=== PATIENT | female | born 1945 | race Caucasian/White ===

== ENCOUNTER 2016-09-26 12:07 | Inpatient (IN) | payer MEDICARE, OTHER ==
[2016-09-26] MEDS ORDERED: LACTATED RINGERS 1,000 ML IV SCH (12:13)
[2016-09-26] MEDS ORDERED: ONDANSETRON HCL 4 MG/2 ML VIAL IV PRN (12:13)
[2016-09-26] MEDS ORDERED: SODIUM CHLORIDE NASAL SPRAY 44 SPRAY/44 ML BTL NASAL PRN ×2 (12:13→19:20)
[2016-09-26] MEDS ORDERED: HOME MEDICATION LIST NEEDED 1 EA EACH MC ONE (12:13)
[2016-09-26] MEDS ORDERED: ONDANSETRON ODT 4 MG TAB.RAPDIS PO PRN ×2 (12:13→19:20)
[2016-09-26] MEDS ORDERED: LABETALOL HCL 100 MG/20 ML VIAL IV PRN (12:13)
[2016-09-26] MEDS ORDERED: MORPHINE SULFATE 2 MG/ML SYR IV PRN (12:13)
--- NOTE | 2016-09-26 12:29 | PROGRESS NOTE: Orthopedics ---
Orthopedic PN Subjective - Subjective Principal Diagnosis: Post op IM nailing L intertrochanteric fx Post-op Day: 3 Interval history: Pt feel a little better now. Was having trouble with spasm. Ortho PN Objective Exam - Latest Vital Signs and I&O Latest Vital Signs/I&O: Intake & Output 09/25/16 09/26/16 09/26/16 17:59 05:59 17:59 Weight 59 kg - Post-Operative Exam Incision: Present: clean and dry Drainage Amount: none Active Motor: intact Sensation: intact Jose J's sign: Negative Assessment and Plan-Ortho - Date of Encounter Date of Encounter: 09/26/16 (1) Fracture, intertrochanteric, left femur Status: Acute Assessment and plan: Doing fairly well but slow to mobilize due to Parkinson's and spasm. Plan: Continue PT/mobilization Current Visit: No Quality Questions - VTE Prophylaxis Assessment VTE Present on Admission?: No Patient at risk for venous thromboembolism?: Yes VTE Risk Level: Moderate Risk Pharmaceutical VTE prophylaxis contraindication reason: N/A- VTE prophylaxsis ordered Mechanical VTE prophylaxis contraindication reason: N/A- VTE prophylaxsis ordered
[2016-09-26] MEDS: ACETAMINOPHEN 325 MG TABLET PO PRN ×2 (14:15→21:11)
[2016-09-26] MEDS: BACLOFEN 10MG TABLET PO PRN ×2 (14:15→21:11)
[2016-09-26] MEDS: CARBIDOPA/LEVODOPA 25/100 MG 1 TAB TABLET PO SCH (17:02)
[2016-09-26 19:03] LABS: URINE AMORPHOUS SEDIMENT UP TO 25%/lpf (Up to 25%); URINE APPEARANCE CLEAR; URINE BACTERIA NONE SEEN (<10/hpf); URINE BILIRUBIN NEGATIVE (NEGATIVE); URINE BLOOD TRACE (NEGATIVE); URINE COLOR YELLOW; URINE GLUCOSE NORMAL (NEGATIVE); URINE KETONE NEGATIVE (NEGATIVE); URINE LEUKOCYTE ESTERASE NEGATIVE (NEGATIVE); URINE MUCUS NONE SEEN (Up to 25%); URINE NITRITE NEGATIVE (NEGATIVE); URINE PH 6.5 (5-7); URINE PROTEIN NEGATIVE (NEG - TRACE); URINE RBC NONE SEEN (0-5/hpf); URINE SQUAMOUS EPITHELIAL CELL 0-5/hpf (<= 15/hpf); URINE TRANSITIONAL EPI CELL 0-5/hpf (<=5/hpf); URINE UROBILINOGEN 0.2mg/dL (Normal) (NEG-1mg/dL); URINE WBC 0-4/hpf (0-4/hpf)
[2016-09-26] MEDS ORDERED: BACLOFEN 10MG TABLET PO PRN (19:20)
[2016-09-26] MEDS ORDERED: ACETAMINOPHEN 325 MG TABLET PO PRN (19:20)
[2016-09-26] MEDS: DOCUSATE SODIUM 100 MG CAPSULE PO SCH (20:54)
[2016-09-26] MEDS: FAMOTIDINE 20 MG TABLET PO SCH (20:55)
[2016-09-26] MEDS: ALBUTEROL HFA 1 INH INHALER INHALATION SCH (20:56)
[2016-09-26] MEDS ORDERED: ALBUTEROL HFA 1 INH INHALER INHALATION SCH (21:00)
[2016-09-26] MEDS ORDERED: FAMOTIDINE 20 MG TABLET PO SCH (21:00)
[2016-09-26] MEDS ORDERED: AMITRIPTYLINE HCL 25 MG TABLET PO SCH ×2 (21:00)
[2016-09-26] MEDS ORDERED: DOCUSATE SODIUM 100 MG CAPSULE PO SCH (21:00)
[2016-09-26] MEDS ORDERED: BISACODYL 10 MG SUPP.RECT PR SCH (21:00)
[2016-09-26] MEDS ORDERED: MAGNESIUM HYDROXIDE 30 ML UDC PO PRN (21:39)
[2016-09-27] MEDS ORDERED: BISACODYL 10 MG SUPP.RECT RECTAL PRN (03:06)
[2016-09-27] MEDS ORDERED: CARBIDOPA/LEVODOPA 25/100 MG 1 TAB TABLET PO SCH (07:00)
[2016-09-27] MEDS: CARBIDOPA/LEVODOPA 25/100 MG 1 TAB TABLET PO SCH ×3 (07:01→16:14)
[2016-09-27] MEDS: BACLOFEN 10MG TABLET PO PRN ×2 (07:02→12:38)
[2016-09-27] MEDS: ACETAMINOPHEN 325 MG TABLET PO PRN ×2 (07:09→14:50)
--- NOTE | 2016-09-27 08:53 | PROGRESS NOTE: Orthopedics ---
Orthopedic PN Subjective - Subjective Principal Diagnosis: Post op IM nailing L intertroch hip fracture Post-op Day: 4 Interval history: Pt feels fairly well at this time but still having some muscle spasm. Ortho PN Objective Exam - Latest Vital Signs and I&O Latest Vital Signs/I&O: Vital Signs Temp 36.7 C 09/27/16 07:00 Pulse 87 09/27/16 07:00 Resp 20 09/26/16 18:36 BP 146/69 09/27/16 07:00 Pulse Ox 95 09/27/16 08:34 Intake & Output 09/26/16 09/27/16 09/27/16 17:59 05:59 17:59 Intake Total 1790 950 Output Total 1825 1875 Balance -35 -925 Weight 58.967 kg Intake: Oral 1790 950 Output: Urine 1824 1875 Other: Urine Appearance Clear Clear Urine Color Pale Yellow Yellow Stool Size Copious Stool Characteristics Soft [place] Voiding Method Toilet Bedside Commode - Post-Operative Exam Incision: Present: clean and dry Dressing Status: dry & intact Drainage Amount: none Sensation: intact Jose J's sign: Negative - Lab Labs: Laboratory Last Values Urine Color Yellow 09/26/16 12:13 Urine Appearance Clear 09/26/16 12:13 Urine pH 6.5 (5-7) 09/26/16 12:13 Ur Specific [place] 1.010 (0.001-1.035) 09/26/16 12:13 Urine Protein Negative (NEG - TRACE) 09/26/16 12:13 Urine Ketones Negative (NEGATIVE) 09/26/16 12:13 Urine Blood Trace (NEGATIVE) A 09/26/16 12:13 Urine Nitrate Negative (NEGATIVE) 09/26/16 12:13 Urine Bilirubin Negative (NEGATIVE) 09/26/16 12:13 Urine Urobilinogen 0.2mg/dl (normal) (NEG-1mg/dL) 09/26/16 12:13 Ur Leukocyte Esterase Negative (NEGATIVE) 09/26/16 12:13 Urine RBC None seen (0-5/hpf) 09/26/16 12:13 Urine WBC 0-4/hpf (0-4/hpf) 09/26/16 12:13 Ur Squamous Epith Cells 0-5/hpf (<= 15/hpf) 09/26/16 12:13 Ur Transition Epith Cell 0-5/hpf (<=5/hpf) 09/26/16 12:13 Amorphous Sediment Up to 25%/lpf (Up to 25%) 09/26/16 12:13 Urine Bacteria None seen (<10/hpf) 09/26/16 12:13 Urine Mucus None seen (Up to 25%) 09/26/16 12:13 Urine Glucose Normal (NEGATIVE) 09/26/16 12:13 Assessment and Plan-Ortho - Date of Encounter Date of Encounter: 09/27/16 (1) Fracture, intertrochanteric, left femur Status: Acute Assessment and plan: Doing fairly well but slow to mobilize due to Parkinson's and spasm. Plan: Continue PT/mobilization Current Visit: No
[2016-09-27] MEDS ORDERED: FOLIC ACID 1 MG TABLET PO SCH (09:00)
[2016-09-27] MEDS ORDERED: MULTIVITAMINS THERAPEUTIC 1 TABLET PO SCH (09:00)
[2016-09-27] MEDS ORDERED: CHOLECALCIFEROL 1,000 UNIT CAPSULE PO SCH (09:00)
[2016-09-27] MEDS ORDERED: CO Q10 100 MG PO SCH (09:00)
[2016-09-27] MEDS ORDERED: HYDROCHLOROTHIAZIDE 25 MG TABLET PO SCH (09:00)
[2016-09-27] MEDS ORDERED: FERROUS SULFATE 325 MG TABLET PO SCH (09:00)
[2016-09-27] MEDS ORDERED: ENOXAPARIN SODIUM 40 MG/0.4 ML SYR SUBCUT SCH (09:00)
--- NOTE | 2016-09-27 09:28 | PROGRESS NOTE: IM APSO ---
Assessment and Plan - Date of Encounter Date of Encounter: 09/27/16 (1) Fracture, intertrochanteric, left femur Status: Acute Assessment and plan: s/p orif, mobility improving, fatigued today likely meds and activity yesterday Current Visit: No (2) Hypertension Status: Chronic Assessment and plan: labile and related to parkinsonism Current Visit: No (3) Parkinsonian syndrome Status: Chronic Current Visit: No (4) Spinal stenosis Status: Chronic Assessment and plan: f/u ls spine Current Visit: No (5) Anemia Status: Acute Assessment and plan: surgical related and stable Current Visit: No - Time Spent With Patient Total time spent with greater than 50% in coordination of care (as documented) at patient's floor/unit and/or counseling patient: 16-24 minutes Estimated anticipated discharge: possible Sat likely Saturday IM: PN Subjective General: good appetite, no confusion, no fever Cardiovascular: other (dizzy with standing, some concern as elevated BP then stands and dips (related to parkinsonism and she knows this) has prn meds for elevated and avoiding dehydration), no chest pain, no chest pressure Respiratory: no cough, no sputum Gastrointestinal: constipation (now better), no abdominal pain, no vomiting, no diarrhea Musculoskeletal: pain (low back after fall (prior fixation) not over vertebrae and largely paraspinal) Neurological: no numbness IM: PN Objective Exam - I&O/Vital Signs I&O: Intake & Output 09/26/16 09/27/16 09/27/16 21:59 05:59 13:59 Intake Total 1790 950 Output Total 1825 1875 Balance -35 -925 Intake: Oral 1790 950 Output: Urine 1825 1875 Other: Urine Appearance Clear Clear Urine Color Pale Yellow Yellow Stool Size Copious Stool Characteristics [place] Voiding Method Toilet Bedside Commode Vital Signs: Last Vital Signs Temp 36.7 C 09/27/16 07:00 Pulse 87 09/27/16 07:00 Resp 20 09/26/16 18:36 BP 146/69 09/27/16 07:00 Pulse Ox 95 09/27/16 08:34 Oxygen Flow Rate 0 Oxygen Delivery Method Room Air - Constitutional General appearance: Present: average body habitus - Head Head exam: Present: atraumatic - Eye Eye exam: Present: EOMI - ENT ENT exam: Present: mucous membranes moist - Respiratory Respiratory exam: Present: CTAB - Cardiovascular Cardiovascular exam: Present: RRR - GI/Abdominal GI/Abdominal exam: Present: normal bowel sounds, soft, tenderness - Allied Health Notes Allied health notes reviewed: nursing - Lab Labs: Laboratory Last Values Urine Color Yellow 09/26/16 12:13 Urine Appearance Clear 09/26/16 12:13 Urine pH 6.5 (5-7) 09/26/16 12:13 Ur Specific [place] 1.010 (0.001-1.035) 09/26/16 12:13 Urine Protein Negative (NEG - TRACE) 09/26/16 12:13 Urine Ketones Negative (NEGATIVE) 09/26/16 12:13 Urine Blood Trace (NEGATIVE) A 09/26/16 12:13 Urine Nitrate Negative (NEGATIVE) 09/26/16 12:13 Urine Bilirubin Negative (NEGATIVE) 09/26/16 12:13 Urine Urobilinogen 0.2mg/dl (normal) (NEG-1mg/dL) 09/26/16 12:13 Ur Leukocyte Esterase Negative (NEGATIVE) 09/26/16 12:13 Urine RBC None seen (0-5/hpf) 09/26/16 12:13 Urine WBC 0-4/hpf (0-4/hpf) 09/26/16 12:13 Ur Squamous Epith Cells 0-5/hpf (<= 15/hpf) 09/26/16 12:13 Ur Transition Epith Cell 0-5/hpf (<=5/hpf) 09/26/16 12:13 Amorphous Sediment Up to 25%/lpf (Up to 25%) 09/26/16 12:13 Urine Bacteria None seen (<10/hpf) 09/26/16 12:13 Urine Mucus None seen (Up to 25%) 09/26/16 12:13 Urine Glucose Normal (NEGATIVE) 09/26/16 12:13 (1) Fracture, intertrochanteric, left femur Qualifiers: Fracture healing: with routine healing (2) Hypertension Qualifiers: Hypertension type: essential hypertension Qualified Code(s): I10 - Essential (primary) hypertension (3) Parkinsonian syndrome Qualifiers: Parkinsonism type: unspecified Qualified Code(s): G20 - Parkinson's disease
[2016-09-27] MEDS: DOCUSATE SODIUM 100 MG CAPSULE PO SCH ×2 (09:45→23:56)
[2016-09-27] MEDS: FERROUS SULFATE 325 MG TABLET PO SCH (09:45)
[2016-09-27] MEDS: ENOXAPARIN SODIUM 40 MG/0.4 ML SYR SUBCUT SCH (09:47)
[2016-09-27] MEDS: HYDROCHLOROTHIAZIDE 25 MG TABLET PO SCH (09:47)
[2016-09-27] MEDS: MULTIVITAMINS THERAPEUTIC 1 TABLET PO SCH ×2 (09:52→11:46)
[2016-09-27] MEDS: FOLIC ACID 1 MG TABLET PO SCH ×2 (09:53→11:47)
[2016-09-27] MEDS: CO Q10 100 MG PO SCH ×2 (09:53→11:47)
[2016-09-27] MEDS: CHOLECALCIFEROL 1,000 UNIT CAPSULE PO SCH ×2 (09:54→11:46)
[2016-09-27] MEDS: LIDOCAINE HCL 5% OINT 35 APP/35.44 GM TUBE TOPICAL PRN (16:15)
[2016-09-27] MEDS: ACETAMINOPHEN 500 MG TABLET PO PRN (18:00)
[2016-09-27] MEDS: AMITRIPTYLINE HCL 25 MG TABLET PO SCH (23:56)
[2016-09-27] MEDS: FAMOTIDINE 20 MG TABLET PO SCH (23:56)
[2016-09-27] MEDS: ALBUTEROL HFA 1 INH INHALER INHALATION SCH (23:56)
[2016-09-28] MEDS: FAMOTIDINE 20 MG TABLET PO SCH ×2 (01:56→21:33)
[2016-09-28] MEDS: AMITRIPTYLINE HCL 25 MG TABLET PO SCH ×2 (01:56→21:33)
[2016-09-28] MEDS: DOCUSATE SODIUM 100 MG CAPSULE PO SCH ×3 (01:57→21:32)
[2016-09-28] MEDS: ALBUTEROL HFA 1 INH INHALER INHALATION SCH ×2 (01:57→21:33)
[2016-09-28] MEDS: CARBIDOPA/LEVODOPA 25/100 MG 1 TAB TABLET PO SCH ×3 (06:37→17:27)
[2016-09-28] MEDS: ACETAMINOPHEN 500 MG TABLET PO PRN ×3 (06:45→23:45)
[2016-09-28] MEDS: LIDOCAINE HCL 5% OINT 35 APP/35.44 GM TUBE TOPICAL PRN ×2 (07:01→22:48)
--- NOTE | 2016-09-28 09:08 | PROGRESS NOTE: Orthopedics ---
Orthopedic PN Subjective - Subjective Principal Diagnosis: Post op IM nailing L intertroch hip fx Post-op Day: 5 Interval history: Pt feels fairly well except having some lightheadedness when standing Ortho PN Objective Exam - Latest Vital Signs and I&O Latest Vital Signs/I&O: Vital Signs Temp 36.6 C 09/28/16 07:00 Pulse 72 09/28/16 07:00 Resp 13 09/28/16 07:00 BP 128/76 09/28/16 07:00 Pulse Ox 94 09/28/16 07:00 Intake & Output 09/27/16 09/28/16 09/28/16 17:59 05:59 17:59 Intake Total 1230 550 Output Total 510 Balance 720 550 Intake: Oral 1230 550 Output: Urine 510 Other: Urine Appearance Clear Urine Color Yellow Stool Size Copious Stool Characteristics Soft [place] Voiding Method Toilet # Voids 3 - Post-Operative Exam Incision: Present: clean and dry Drainage Amount: none Sensation: intact Jose J's sign: Negative - Lab Labs: Laboratory Last Values Urine Color Yellow 09/26/16 12:13 Urine Appearance Clear 09/26/16 12:13 Urine pH 6.5 (5-7) 09/26/16 12:13 Ur Specific [place] 1.010 (0.001-1.035) 09/26/16 12:13 Urine Protein Negative (NEG - TRACE) 09/26/16 12:13 Urine Ketones Negative (NEGATIVE) 09/26/16 12:13 Urine Blood Trace (NEGATIVE) A 09/26/16 12:13 Urine Nitrate Negative (NEGATIVE) 09/26/16 12:13 Urine Bilirubin Negative (NEGATIVE) 09/26/16 12:13 Urine Urobilinogen 0.2mg/dl (normal) (NEG-1mg/dL) 09/26/16 12:13 Ur Leukocyte Esterase Negative (NEGATIVE) 09/26/16 12:13 Urine RBC None seen (0-5/hpf) 09/26/16 12:13 Urine WBC 0-4/hpf (0-4/hpf) 09/26/16 12:13 Ur Squamous Epith Cells 0-5/hpf (<= 15/hpf) 09/26/16 12:13 Ur Transition Epith Cell 0-5/hpf (<=5/hpf) 09/26/16 12:13 Amorphous Sediment Up to 25%/lpf (Up to 25%) 09/26/16 12:13 Urine Bacteria None seen (<10/hpf) 09/26/16 12:13 Urine Mucus None seen (Up to 25%) 09/26/16 12:13 Urine Glucose Normal (NEGATIVE) 09/26/16 12:13 Assessment and Plan-Ortho - Date of Encounter Date of Encounter: 09/28/16 (1) Fracture, intertrochanteric, left femur Status: Acute Assessment and plan: Doing fairly well. Plan: Continue PT/mobilization Current Visit: No Estimated anticipated discharge: possible Sat likely Saturday (1) Fracture, intertrochanteric, left femur Qualifiers: Fracture healing: with routine healing
[2016-09-28] MEDS: FERROUS SULFATE 325 MG TABLET PO SCH (09:32)
[2016-09-28] MEDS: HYDROCHLOROTHIAZIDE 25 MG TABLET PO SCH (09:32)
[2016-09-28] MEDS: ENOXAPARIN SODIUM 40 MG/0.4 ML SYR SUBCUT SCH (09:32)
[2016-09-28] MEDS: BACLOFEN 10MG TABLET PO PRN (09:34)
[2016-09-28] MEDS: CHOLECALCIFEROL 1,000 UNIT CAPSULE PO SCH (11:01)
[2016-09-28] MEDS: FOLIC ACID 1 MG TABLET PO SCH (11:01)
[2016-09-28] MEDS: MULTIVITAMINS THERAPEUTIC 1 TABLET PO SCH (11:01)
[2016-09-28] MEDS: CO Q10 100 MG PO SCH (11:01)
--- NOTE | 2016-09-28 11:33 | PROGRESS NOTE: IM APSO ---
Assessment and Plan - Date of Encounter Date of Encounter: 09/28/16 (1) Fracture, intertrochanteric, left femur Status: Acute Assessment and plan: s/p orif, mobility improving (walked from room to breezeway), less fatigue Current Visit: No (2) Hypertension Status: Chronic Assessment and plan: less labile today, likely some orthostasis from meds and parkinsonism Current Visit: No (3) Parkinsonian syndrome Status: Chronic Current Visit: No (4) Spinal stenosis Status: Chronic Assessment and plan: f/u ls spine films (done not read as yet), overall, pain has improved with spasm treatment (baclofen) Current Visit: No (5) Anemia Status: Acute Assessment and plan: surgical related and stable Current Visit: No - Time Spent With Patient Total time spent with greater than 50% in coordination of care (as documented) at patient's floor/unit and/or counseling patient: less than 15 minutes Estimated anticipated discharge: possible Sat likely Saturday IM: PN Subjective General: good appetite, no confusion, no fever Cardiovascular: other (dizzy with standing, some concern as elevated BP then stands and dips (related to parkinsonism and she knows this) has prn meds for elevated and avoiding dehydration), no chest pain, no chest pressure Respiratory: no cough, no sputum Gastrointestinal: constipation (now better), no abdominal pain, no vomiting, no diarrhea Musculoskeletal: pain (back pain better today but had LS spine srays and made to lay on left over ihsan, skin/ihsan hurt.) Neurological: no numbness IM: PN Objective Exam - I&O/Vital Signs I&O: Intake & Output 09/27/16 09/28/16 09/28/16 21:59 05:59 13:59 Intake Total 1230 550 Output Total 510 Balance 720 550 Intake: Oral 1230 550 Output: Urine 510 Other: Urine Appearance Clear Clear Urine Color Yellow Yellow Voiding Method Toilet Toilet # Voids 3 Vital Signs: Last Vital Signs Temp 36.6 C 09/28/16 07:00 Pulse 72 09/28/16 07:00 Resp 13 09/28/16 09:00 BP 128/76 09/28/16 07:00 Pulse Ox 94 09/28/16 09:00 Oxygen Flow Rate 0 Oxygen Delivery Method Room Air - Constitutional General appearance: Present: average body habitus - Head Head exam: Present: atraumatic - Eye Eye exam: Present: EOMI - Back Exam Back exam: Present: muscle spasm - Allied Health Notes Allied health notes reviewed: nursing - Lab Labs: Laboratory Last Values Urine Color Yellow 09/26/16 12:13 Urine Appearance Clear 09/26/16 12:13 Urine pH 6.5 (5-7) 09/26/16 12:13 Ur Specific [place] 1.010 (0.001-1.035) 09/26/16 12:13 Urine Protein Negative (NEG - TRACE) 09/26/16 12:13 Urine Ketones Negative (NEGATIVE) 09/26/16 12:13 Urine Blood Trace (NEGATIVE) A 09/26/16 12:13 Urine Nitrate Negative (NEGATIVE) 09/26/16 12:13 Urine Bilirubin Negative (NEGATIVE) 09/26/16 12:13 Urine Urobilinogen 0.2mg/dl (normal) (NEG-1mg/dL) 09/26/16 12:13 Ur Leukocyte Esterase Negative (NEGATIVE) 09/26/16 12:13 Urine RBC None seen (0-5/hpf) 09/26/16 12:13 Urine WBC 0-4/hpf (0-4/hpf) 09/26/16 12:13 Ur Squamous Epith Cells 0-5/hpf (<= 15/hpf) 09/26/16 12:13 Ur Transition Epith Cell 0-5/hpf (<=5/hpf) 09/26/16 12:13 Amorphous Sediment Up to 25%/lpf (Up to 25%) 09/26/16 12:13 Urine Bacteria None seen (<10/hpf) 09/26/16 12:13 Urine Mucus None seen (Up to 25%) 09/26/16 12:13 Urine Glucose Normal (NEGATIVE) 09/26/16 12:13 (1) Fracture, intertrochanteric, left femur Qualifiers: Fracture healing: with routine healing (2) Hypertension Qualifiers: Hypertension type: essential hypertension Qualified Code(s): I10 - Essential (primary) hypertension (3) Parkinsonian syndrome Qualifiers: Parkinsonism type: unspecified Qualified Code(s): G20 - Parkinson's disease
--- NOTE | 2016-09-28 13:39 | RADIOLOGY REPORT ---
LUMBAR SPINE: HISTORY: Pain after falling. DISCUSSION: 5 radiographs of the lumbar spine are reviewed. Comparison made with an MRI from 6. In the interval, the patient has undergone a L4-S1 posterior laminectomy and fusion. Intervertebral d isc spacers are present. There is mild anterior subluxation of L4 with respect to L5 approximately 6 mm. This was seen on the prior MRI and appears unchanged. There is no acute fracture identified. No a cute subluxation is seen. Mild degenerative changes are present in the upper lumbar spine worse at th e L1-2 level. There is some mild narrowing of the disc space. Sacral electrodes appear normal. [place] ing bowel gas pattern is within normal limits. A pin is seen in the left proximal femur. On the the l ateral radiograph there appear to be some skin ihsan present. IMPRESSION: 1. Status post L4-S1 posterior laminectomy and fusion. 2. No acute bony injury identified. Interpreted by Jacob Vivas MD Final Electronic Signature: This report was electronically signed by Jacob Vivas MD on 09/28/2016 1:37 PM. [email or web address]
[2016-09-28] MEDS: MELATONIN 3 MG TABLET PO SCH (23:05)
[2016-09-29] MEDS: BACLOFEN 10MG TABLET PO PRN ×2 (01:50→17:44)
[2016-09-29] MEDS: ACETAMINOPHEN 500 MG TABLET PO PRN ×2 (06:42→17:22)
[2016-09-29] MEDS: CARBIDOPA/LEVODOPA 25/100 MG 1 TAB TABLET PO SCH ×3 (06:42→16:22)
--- NOTE | 2016-09-29 09:10 | PROGRESS NOTE: Orthopedics ---
Orthopedic PN Subjective - Subjective Principal Diagnosis: L intertroch fx Post-op Day: 6 Interval history: Pt feels fairly well. Was able to ambulate more yesterday Ortho PN Objective Exam - Latest Vital Signs and I&O Latest Vital Signs/I&O: Vital Signs Temp 36.7 C 09/29/16 07:00 Pulse 65 09/29/16 07:00 Resp 16 09/29/16 07:00 BP 154/72 09/29/16 07:00 Pulse Ox 97 09/29/16 07:00 Intake & Output 09/28/16 09/29/16 09/29/16 17:59 05:59 17:59 Intake Total 1564 550 Output Total 1 300 Balance 1563 250 Intake: Oral 1564 550 Output: Urine 300 Stool 1 Other: Urine Appearance Clear Urine Color Yellow Stool Size Moderate Moderate Stool Characteristics Formed Brown Voiding Method Toilet # Voids 1 - Post-Operative Exam Incision: Present: clean and dry Drainage Amount: none Active Motor: intact Sensation: intact Jose J's sign: Negative - Lab Labs: Laboratory Last Values Urine Color Yellow 09/26/16 12:13 Urine Appearance Clear 09/26/16 12:13 Urine pH 6.5 (5-7) 09/26/16 12:13 Ur Specific [place] 1.010 (0.001-1.035) 09/26/16 12:13 Urine Protein Negative (NEG - TRACE) 09/26/16 12:13 Urine Ketones Negative (NEGATIVE) 09/26/16 12:13 Urine Blood Trace (NEGATIVE) A 09/26/16 12:13 Urine Nitrate Negative (NEGATIVE) 09/26/16 12:13 Urine Bilirubin Negative (NEGATIVE) 09/26/16 12:13 Urine Urobilinogen 0.2mg/dl (normal) (NEG-1mg/dL) 09/26/16 12:13 Ur Leukocyte Esterase Negative (NEGATIVE) 09/26/16 12:13 Urine RBC None seen (0-5/hpf) 09/26/16 12:13 Urine WBC 0-4/hpf (0-4/hpf) 09/26/16 12:13 Ur Squamous Epith Cells 0-5/hpf (<= 15/hpf) 09/26/16 12:13 Ur Transition Epith Cell 0-5/hpf (<=5/hpf) 09/26/16 12:13 Amorphous Sediment Up to 25%/lpf (Up to 25%) 09/26/16 12:13 Urine Bacteria None seen (<10/hpf) 09/26/16 12:13 Urine Mucus None seen (Up to 25%) 09/26/16 12:13 Urine Glucose Normal (NEGATIVE) 09/26/16 12:13 Assessment and Plan-Ortho - Date of Encounter Date of Encounter: 09/29/16 (1) Fracture, intertrochanteric, left femur Status: Acute Assessment and plan: Doing fairly well. Beginning to improve Plan: Continue PT/mobilization. Discharge to home early in week. Current Visit: No Estimated anticipated discharge: possible Sat likely Saturday (1) Fracture, intertrochanteric, left femur Qualifiers: Fracture healing: with routine healing
[2016-09-29] MEDS: FERROUS SULFATE 325 MG TABLET PO SCH (09:49)
[2016-09-29] MEDS: DOCUSATE SODIUM 100 MG CAPSULE PO SCH ×2 (09:49→20:29)
[2016-09-29] MEDS: ENOXAPARIN SODIUM 40 MG/0.4 ML SYR SUBCUT SCH (09:49)
[2016-09-29] MEDS: HYDROCHLOROTHIAZIDE 25 MG TABLET PO SCH (09:49)
[2016-09-29] MEDS: CHOLECALCIFEROL 1,000 UNIT CAPSULE PO SCH (11:41)
[2016-09-29] MEDS: FOLIC ACID 1 MG TABLET PO SCH (11:41)
[2016-09-29] MEDS: CO Q10 100 MG PO SCH (11:41)
[2016-09-29] MEDS: MULTIVITAMINS THERAPEUTIC 1 TABLET PO SCH (11:41)
[2016-09-29] MEDS: MELATONIN 3 MG TABLET PO SCH (20:08)
[2016-09-29] MEDS: AMITRIPTYLINE HCL 25 MG TABLET PO SCH (20:08)
[2016-09-29] MEDS: FAMOTIDINE 20 MG TABLET PO SCH (20:08)
[2016-09-29] MEDS: ALBUTEROL HFA 1 INH INHALER INHALATION SCH (20:09)
[2016-09-30] MEDS: ACETAMINOPHEN 500 MG TABLET PO PRN ×2 (04:29→11:59)
[2016-09-30] MEDS: CARBIDOPA/LEVODOPA 25/100 MG 1 TAB TABLET PO SCH ×3 (07:01→16:21)
[2016-09-30] MEDS: DOCUSATE SODIUM 100 MG CAPSULE PO SCH ×2 (09:04→20:01)
[2016-09-30] MEDS: ENOXAPARIN SODIUM 40 MG/0.4 ML SYR SUBCUT SCH (09:05)
[2016-09-30] MEDS: HYDROCHLOROTHIAZIDE 25 MG TABLET PO SCH (09:05)
[2016-09-30] MEDS: FERROUS SULFATE 325 MG TABLET PO SCH (09:05)
[2016-09-30] MEDS: CO Q10 100 MG PO SCH (11:57)
[2016-09-30] MEDS: MULTIVITAMINS THERAPEUTIC 1 TABLET PO SCH (11:58)
[2016-09-30] MEDS: FOLIC ACID 1 MG TABLET PO SCH (11:58)
[2016-09-30] MEDS: CHOLECALCIFEROL 1,000 UNIT CAPSULE PO SCH (11:59)
[2016-09-30 19:46] VITALS: RESP 16
[2016-09-30] MEDS: AMITRIPTYLINE HCL 25 MG TABLET PO SCH (20:00)
[2016-09-30] MEDS ORDERED: FISH OIL/OMEGA-3 FATTY ACIDS 1,000 MG CAPSULE PO SCH (21:00)
[2016-09-30] MEDS: MELATONIN 3 MG TABLET PO SCH (21:36)
[2016-09-30] MEDS: FAMOTIDINE 20 MG TABLET PO SCH (21:36)
[2016-09-30] MEDS: ALBUTEROL HFA 1 INH INHALER INHALATION SCH (21:37)
[2016-10-01] MEDS: ACETAMINOPHEN 500 MG TABLET PO PRN (02:41)
[2016-10-01] MEDS: CARBIDOPA/LEVODOPA 25/100 MG 1 TAB TABLET PO SCH ×2 (06:28→11:14)
[2016-10-01 07:08] VITALS: BP 156/90; PULSE 71; TEMP 97.6; O2SAT 93
--- NOTE | 2016-10-01 09:02 | PROGRESS NOTE: IM APSO ---
Assessment and Plan - Date of Encounter Date of Encounter: 10/01/16 (1) Fracture, intertrochanteric, left femur Status: Acute Assessment and plan: s/p orif, mobility improving (walked from room to breezeway), less fatigue and pain controlled just with Tylenol. Does need another 4-5 days of Lovenox, has been taught administration but needs Rx to [facility] Current Visit: No (2) Hypertension Status: Chronic Assessment and plan: less labile today, likely some orthostasis from meds and parkinsonism Current Visit: No (3) Parkinsonian syndrome Status: Chronic Current Visit: No (4) Spinal stenosis Status: Chronic Assessment and plan: f/u ls spine films show post op changes nil acute, overall, pain has improved with spasm treatment (baclofen) Current Visit: No (5) Anemia Status: Acute Assessment and plan: surgical related and stable Current Visit: No - Time Spent With Patient Total time spent with greater than 50% in coordination of care (as documented) at patient's floor/unit and/or counseling patient: 25 - 35 minutes Estimated anticipated discharge: today IM: PN Subjective General: good appetite, no confusion, no fever Cardiovascular: other (dizzy with standing, some concern as elevated BP then stands and dips (related to parkinsonism and she knows this) has prn meds for elevated and avoiding dehydration, has concerns about lability of BP and autonomic symptoms, (likely Shy Drager) and suggest she consider a consult with [facility] Dr. Martinez), no chest pain, no chest pressure Respiratory: no cough, no sputum Gastrointestinal: constipation (now better), no abdominal pain, no vomiting, no diarrhea Musculoskeletal: pain (seems controlled with just Tylenol, not using oxycodone as all side effects and no benefit) Neurological: no numbness IM: PN Objective Exam - I&O/Vital Signs I&O: Intake & Output 09/30/16 10/01/16 10/01/16 21:59 05:59 13:59 Intake Total 1999 Balance 1999 Intake: Oral 1999 Other: Urine Appearance Clear Stool Characteristics Soft Voiding Method Toilet Toilet # Voids 2 # Bowel Movements 1 Vital Signs: Last Vital Signs Temp 36.4 C 10/01/16 07:00 Pulse 71 10/01/16 07:00 Resp 16 10/01/16 07:00 BP 156/90 10/01/16 07:00 Pulse Ox 93 10/01/16 07:00 Oxygen Flow Rate 0 Oxygen Delivery Method Room Air - Constitutional General appearance: Present: average body habitus - Head Head exam: Present: atraumatic - Eye Eye exam: Present: EOMI - ENT ENT exam: Present: mucous membranes moist - Respiratory Respiratory exam: Present: CTAB - Cardiovascular Cardiovascular exam: Present: RRR - Allied Health Notes Allied health notes reviewed: nursing, PT - Lab Labs: Laboratory Last Values Urine Color Yellow 09/26/16 12:13 Urine Appearance Clear 09/26/16 12:13 Urine pH 6.5 (5-7) 09/26/16 12:13 Ur Specific [place] 1.010 (0.001-1.035) 09/26/16 12:13 Urine Protein Negative (NEG - TRACE) 09/26/16 12:13 Urine Ketones Negative (NEGATIVE) 09/26/16 12:13 Urine Blood Trace (NEGATIVE) A 09/26/16 12:13 Urine Nitrate Negative (NEGATIVE) 09/26/16 12:13 Urine Bilirubin Negative (NEGATIVE) 09/26/16 12:13 Urine Urobilinogen 0.2mg/dl (normal) (NEG-1mg/dL) 09/26/16 12:13 Ur Leukocyte Esterase Negative (NEGATIVE) 09/26/16 12:13 Urine RBC None seen (0-5/hpf) 09/26/16 12:13 Urine WBC 0-4/hpf (0-4/hpf) 09/26/16 12:13 Ur Squamous Epith Cells 0-5/hpf (<= 15/hpf) 09/26/16 12:13 Ur Transition Epith Cell 0-5/hpf (<=5/hpf) 09/26/16 12:13 Amorphous Sediment Up to 25%/lpf (Up to 25%) 09/26/16 12:13 Urine Bacteria None seen (<10/hpf) 09/26/16 12:13 Urine Mucus None seen (Up to 25%) 09/26/16 12:13 Urine Glucose Normal (NEGATIVE) 09/26/16 12:13 (1) Fracture, intertrochanteric, left femur Qualifiers: Fracture healing: with routine healing (2) Hypertension Qualifiers: Hypertension type: essential hypertension Qualified Code(s): I10 - Essential (primary) hypertension (3) Parkinsonian syndrome Qualifiers: Parkinsonism type: unspecified Qualified Code(s): G20 - Parkinson's disease
--- NOTE | 2016-10-01 09:08 | DC SUMMARY: IM Note ---
Discharge Summary: IM/Peds Provider: Date of Admission: 09/26/16 Admitting Provider: YUDI SHELTON Attending Provider: YUDI SHELTON Discharging Provider: YUDI SHELTON Primary Care Provider: Discharge Date: 10/01/16 Consults: 09/26/16 12:13 Nutrition/Dietary Consult [CONS] Routine Reason: Swingbed Admission Protocol - Diagnosis (1) Fracture, intertrochanteric, left femur Status: Acute Qualifiers: Fracture healing: with routine healing (2) Hypertension Status: Chronic Qualifiers: Hypertension type: essential hypertension Qualified Code(s): I10 - Essential (primary) hypertension (3) Parkinsonian syndrome Status: Chronic Qualifiers: Parkinsonism type: unspecified Qualified Code(s): G20 - Parkinson's disease (4) Spinal stenosis Status: Chronic (5) Anemia Status: Acute - Time Spent with Patient Total time spent providing and/or coordinating discharge services: Discharge - Patient/Caregiver Discharge Instructions Activity Level: as tolerated and directed by physical therapy Diet: regular Follow up: OLIVA ARMENTA [] - 2 Weeks JONELLE SERRANO [] - 2 Weeks (consideration of consultation at [facility]) Home Medications: Enoxaparin Sodium [LOVENOX 40mg/0.4mL*] 40 mg SUBCUT DAILY #6 syr Disposition: HOME, SELF-CARE Discharge Summary Data - Medication History Medication History: Home Medications Amitriptyline HCl [Elavil*] 45 mg PO HS 09/23/16 Carbidopa/Levodopa 25/100 mg [Sinemet 25/100*] 2 tab PO 0700,1130,1700 09/23/16 Cholecalciferol [Vitamin D*] 1,000 unit PO DAILY 09/23/16 Co Q-10 [Co Q-10 50 mg Softgel] 100 mg PO DAILY 09/23/16 Docusate Sodium [Colace*] 100 mg PO HS 09/23/16 Folic Acid [Folic Acid*] 1 mg PO DAILY 09/23/16 Hydrochlorothiazide [Hydrodiuril*] 12.5 mg PO DAILY 09/23/16 Magnesium Oxide [Mag-Ox*] 200 mg PO DAILY 09/23/16 Multivitamins,Therapeutic [Thera] 1 tab PO DAILY 09/23/16 Ranitidine HCl [Zantac] 150 mg PO HS 09/23/16 Strontium Chloride Hexahydrate 750 mg PO DAILY 09/23/16 Vitamin B Complex [Stress B Complex] 1 tab PO DAILY 09/23/16 Vitamin E 100 unit PO DAILY 09/23/16 Inpatient Medications 09/26/16 12:13 Baclofen [Lioresal] 10 mg PO TID PRN Ondansetron Odt [Zofran Odt] 4 mg PO Q6H PRN Sodium Chloride Nasal [place] [Rains Nasal [place]] 1 spray NASAL Q1H PRN oxyCODONE HCL IR [Oxy Ir] 5 - 10 mg PO Q3H PRN 09/26/16 17:00 Carbidopa/Levodopa 25/100 mg [Sinemet 25/100] 2 tab PO 0700,1130,1700 09/26/16 21:00 Albuterol Hfa [Proventil Hfa Inhaler] 1 inh INHALATION HS Docusate Sodium [Colace] 100 mg PO BID Famotidine [Pepcid] 20 mg PO HS 09/26/16 21:39 Magnesium Hydroxide [Milk of Magnesia] 30 ml PO ONCE PRN 09/27/16 03:06 Bisacodyl [Dulcolax] 10 mg RECTAL BID PRN 09/27/16 07:46 Amitriptyline HCl [Elavil] 50 mg PO HS 09/27/16 09:00 Cholecalciferol [Vitamin D3] 1,000 unit PO DAILY@1200 Co Q-10 100 mg PO DAILY@1200 Enoxaparin Sodium [Lovenox] 40 mg SUBCUT DAILY Ferrous Sulfate 325 mg PO PRN Folic Acid [Folate] 1 mg PO DAILY@1200 Hydrochlorothiazide [Hydrodiuril] 12.5 mg PO DAILY Multivitamins,Therapeutic [Thera] 1 tab PO DAILY@1200 09/27/16 15:52 Acetaminophen [Tylenol X-Strength] 1,000 mg PO TID PRN 09/27/16 16:00 Lidocaine HCl 5% Oint [Xylocaine 5% Ointment] 1 dusty TOPICAL QID PRN 09/28/16 22:57 Melatonin 3 mg PO HS 09/30/16 21:00 Fish Oil/[place]-3 Fatty Acids 1,000 mg PO HS Procedures and tests throughout hospitalization: Completed Lab Orders 09/26/16 12:13 UA W/ MICRO -CULTURE IF IND [URINE] Routine Completed Imaging Orders 09/28/16 09:21 LUMBOSACRAL SPINE; MIN4V [id number] [RAD] Stat Pending Orders 09/26/16 12:13 Admit: Swing Bed Routine Activity: OOB with Assist TID Activity: Turn and position Apply ice to affected area . Cleanse minor skin tears w/NS PRN Cover minor skin tears with DAILYPRN Incentive Spirometry Q1H Intake and Output QSHIFT I&O Notify Physician . Obtain weight Q7D Sequential Compression Device IN BED OR CHAIR BLANCHE Hose . Titrate Oxygen TITRATE TO >90% Turn, Cough, and Deep Breathe Q2H Vital Signs QSHIFT VS Wedge cushion for positioning PRN Serging Machine Operator Consult [CM] Routine Baclofen [Lioresal] 10 mg PO TID PRN Ondansetron Odt [Zofran Odt] 4 mg PO Q6H PRN Sodium Chloride Nasal [place] [Rains Nasal [place]] 1 spray NASAL Q1H PRN oxyCODONE HCL IR [Oxy Ir] 5 - 10 mg PO Q3H PRN Physical Therapy Eval and Treatment [PT] Routine 09/26/16 13:25 ot [Occupation Therapy Eval and Treat] [OT] Routine 09/26/16 14:44 CODE [Resuscitation Status] Routine 09/26/16 17:00 Carbidopa/Levodopa 25/100 mg [Sinemet 25/100] 2 tab PO 0700,1130,1700 09/26/16 21:00 Albuterol Hfa [Proventil Hfa Inhaler] 1 inh INHALATION HS Docusate Sodium [Colace] 100 mg PO BID Famotidine [Pepcid] 20 mg PO HS 09/26/16 21:39 Magnesium Hydroxide [Milk of Magnesia] 30 ml PO ONCE PRN 09/26/16 Dinner Regular [DIET] 09/27/16 03:06 Bisacodyl [Dulcolax] 10 mg RECTAL BID PRN 09/27/16 07:46 Amitriptyline HCl [Elavil] 50 mg PO HS 09/27/16 08:53 Dressing Change PRN May shower PRN 09/27/16 09:00 Cholecalciferol [Vitamin D3] 1,000 unit PO DAILY@1200 Co Q-10 100 mg PO DAILY@1200 Enoxaparin Sodium [Lovenox] 40 mg SUBCUT DAILY Ferrous Sulfate 325 mg PO PRN Folic Acid [Folate] 1 mg PO DAILY@1200 Hydrochlorothiazide [Hydrodiuril] 12.5 mg PO DAILY Multivitamins,Therapeutic [Thera] 1 tab PO DAILY@1200 09/27/16 15:52 Acetaminophen [Tylenol X-Strength] 1,000 mg PO TID PRN 09/27/16 16:00 Lidocaine HCl 5% Oint [Xylocaine 5% Ointment] 1 dusty TOPICAL QID PRN 09/28/16 22:57 Melatonin 3 mg PO HS 09/30/16 21:00 Fish Oil/[place]-3 Fatty Acids 1,000 mg PO HS - Impressions 71 yo active 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 Pain controlled with Tylenol, ambulating with walker, continuing Lovenox for 2 week post op course. Suggest consideration of consult at [facility] for trials/management of Parkinsonism with Dr. Serrano (suggestion) [phone] IM: Discharge Physical Exam - I&O/Vital Signs I&O: Intake & Output 09/30/16 10/01/16 10/01/16 21:59 05:59 13:59 Intake Total 1999 450 Balance 1999 450 Intake: Oral 1999 Other: Urine Appearance Clear Stool Characteristics Soft Voiding Method Toilet Toilet # Voids 2 # Bowel Movements 1 Vital Signs: Last Vital Signs Temp 36.4 C 10/01/16 07:00 Pulse 71 10/01/16 07:00 Resp 16 10/01/16 07:00 BP 156/90 10/01/16 07:00 Pulse Ox 93 10/01/16 07:00 Oxygen Flow Rate 0 Oxygen Delivery Method Room Air - Constitutional General appearance: Present: average body habitus - Head Head exam: Present: atraumatic - ENT ENT exam: Present: mucous membranes moist - Respiratory Respiratory exam: Present: CTAB - Cardiovascular Cardiovascular exam: Present: RRR - Allied Health Notes Allied health notes reviewed: nursing, PT
[2016-10-01] MEDS: FERROUS SULFATE 325 MG TABLET PO SCH (09:35)
[2016-10-01] MEDS: ENOXAPARIN SODIUM 40 MG/0.4 ML SYR SUBCUT SCH (09:35)
[2016-10-01] MEDS: DOCUSATE SODIUM 100 MG CAPSULE PO SCH (09:36)
[2016-10-01] MEDS: HYDROCHLOROTHIAZIDE 25 MG TABLET PO SCH (09:36)
== END 2016-10-01 09:12 | disposition home or self-care (01) | DRG 560 ==
LOC: IN 12:07
PROVIDERS: ADMIT Hospitalist; ATTEND Hospitalist
DX: S72.142D Displaced intertrochanteric fracture of left femur, subsequent encounter for closed fracture with routine healing (principal); G20 Parkinson's disease; I10 Essential (primary) hypertension; M48.06 Spinal stenosis, lumbar region; D62 Acute posthemorrhagic anemia; Z79.899 Other long term (current) drug therapy
CPT/HCPCS: 72110; 81001; J1650